=== PATIENT | male | born 1980 | race Caucasian/White ===

== ENCOUNTER 2024-01-26 14:44 | Emergency (ER) | payer OTHER, SELFPAY ==
[2024-01-26 14:50] VITALS: BP 138/81; PULSE 104; RESP 18; TEMP 37.9; O2SAT 98
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
== END 2024-01-26 17:13 | disposition home or self-care (01) ==
PROVIDERS: Emergency Provider Emergency Medicine
DX: S52.132A Displaced fracture of neck of left radius, initial encounter for closed fracture; V19.9XXA Pedal cyclist (driver) (passenger) injured in unspecified traffic accident, initial encounter; M25.512 Pain in left shoulder; M25.532 Pain in left wrist
CPT/HCPCS: 99284; 73030; 73060; 73080; 73110; 99283